=== PATIENT | male | born 1955 | race Caucasian/White ===

== ENCOUNTER 2017-04-08 16:36 | Outpatient (CLI) | payer OTHER ==
[2017-04-08 15:58] LABS: ALBUMIN/GLOBULIN RATIO 1.7 (1.0-2.2); BILIRUBIN,TOTAL 0.4 mg/dL (0.2-1.0); BUN - BLOOD UREA NITROGEN 24 mg/dL (6-20); CALCIUM 9.8 mg/dL (8.5-10.3); CARBON DIOXIDE - CO2 24 mmol/L (21-32); CHLORIDE 102 mmol/L (101-111); CHOL/HDL RATIO 9.9 (<5.0); CHOLESTEROL 278 mg/dL; CREATININE 0.8 mg/dL (0.6-1.2); GFR - MDRD 97 (>89); GLUCOSE 81 mg/dL (70-100); HDL CHOLESTEROL 28 mg/dL; POTASSIUM 4.5 mmol/L (3.5-5.0); SODIUM 136 mmol/L (135-145); TOTAL PROTEIN 7.6 g/dL (6.7-8.2); TRIGLYCERIDES 517 mg/dL
[2017-04-08 16:23] LABS: BASOPHILS % (AUTO) 0.4 %; EOSINOPHILS # (AUTO) 0.2 10^3/uL (0.0-0.7); EOSINOPHILS % (AUTO) 2.2 %; HCT - HEMATOCRIT 46.9 % (42.0-52.0); HGB - HEMOGLOBIN 15.8 g/dL (14.0-18.0); LYMPHOCYTES # (AUTO) 2.9 10^3/uL (1.5-3.5); MEAN CORPUSCULAR HEMOGLOBIN 31.2 pg (27.0-31.0); MEAN CORPUSCULAR HGB CONC 33.7 g/dL (32.0-36.0); MEAN CORPUSCULAR VOLUME 92.6 fL (80.0-94.0); MEAN PLATELET VOLUME 10.1 fL (7.4-11.4); MONOCYTES % (AUTO) 9.8 %; NEUTROPHILS # (AUTO) 6.1 10^3/uL (1.5-6.6); NEUTROPHILS % (AUTO) 59.6 %; RED BLOOD COUNT 5.06 10^6/uL (4.70-6.10); UNCORRECTED WHITE BLOOD COUNT 10.2 x10^3/uL; WHITE BLOOD COUNT 10.2 x10^3/uL (4.8-10.8)
[2017-04-08 16:29] LABS: THYROID STIMULATING HORMONE 2.51 uIU/mL (0.34-5.60)
[2017-04-08 16:40] LABS: LDL CHOLESTEROL,DIRECT 77 mg/dL
== END 2017-04-08 16:37 | disposition home or self-care (01) ==
LOC: LAB.R 16:36
PROVIDERS: ATTEND Nurse Practitioner Primary Care
DX: G62.9 Polyneuropathy, unspecified (principal); E55.9 Vitamin D deficiency, unspecified; E78.2 Mixed hyperlipidemia; E88.81 Metabolic syndrome and other insulin resistance
CPT/HCPCS: 80053; 80061; 82306; 82607; 84443; 85025

== ENCOUNTER 2017-07-18 08:10 | Outpatient (CLI) | payer OTHER ==
[2017-07-18 15:25] LABS: ALBUMIN/GLOBULIN RATIO 1.5 (1.0-2.2); BILIRUBIN,TOTAL 0.5 mg/dL (0.2-1.0); BUN - BLOOD UREA NITROGEN 23 mg/dL (6-20); CALCIUM 9.6 mg/dL (8.5-10.3); CARBON DIOXIDE - CO2 27 mmol/L (21-32); CHLORIDE 101 mmol/L (101-111); CHOL/HDL RATIO 4.8 (<5.0); CHOLESTEROL 143 mg/dL; GFR - MDRD 75 (>89); GLUCOSE 87 mg/dL (70-100); HDL CHOLESTEROL 30 mg/dL; LDL/HDL RATIO 2.6 (<3.6); SODIUM 137 mmol/L (135-145); TOTAL PROTEIN 7.4 g/dL (6.7-8.2); TRIGLYCERIDES 168 mg/dL; VLDL CHOLESTEROL 34 mg/dL
== END 2017-07-18 08:11 ==
LOC: LAB.R 08:10
PROVIDERS: ATTEND Nurse Practitioner Primary Care
DX: R63.4 Abnormal weight loss (principal); E88.81 Metabolic syndrome and other insulin resistance; E78.5 Hyperlipidemia, unspecified
CPT/HCPCS: 80053; 80061

== ENCOUNTER 2017-12-22 08:00 | Outpatient (CLI) | payer OTHER ==
[2017-12-22 13:06] LABS: BASOPHILS % (AUTO) 0.9 %; EOSINOPHILS # (AUTO) 0.1 10^3/uL (0.0-0.7); EOSINOPHILS % (AUTO) 2.6 %; HGB - HEMOGLOBIN 14.4 g/dL (14.0-18.0); LYMPHOCYTES # (AUTO) 1.8 10^3/uL (1.5-3.5); LYMPHOCYTES % (AUTO) 36.6 %; MEAN CORPUSCULAR HEMOGLOBIN 33.2 pg (27.0-31.0); MEAN CORPUSCULAR VOLUME 97.6 fL (80.0-94.0); MEAN PLATELET VOLUME 9.7 fL (7.4-11.4); MONOCYTES # (AUTO) 0.4 10^3/uL (0.0-1.0); NEUTROPHILS # (AUTO) 2.5 10^3/uL (1.5-6.6); NEUTROPHILS % (AUTO) 51.9 %; PLT - PLATELET COUNT 203 10^3/uL (130-450); RED BLOOD COUNT 4.33 10^6/uL (4.70-6.10); RED CELL DISTRIBUTION WIDTH 14.2 % (12.0-15.0); WHITE BLOOD COUNT 4.8 x10^3/uL (4.8-10.8)
[2017-12-22 13:51] LABS: ALBUMIN 4.4 g/dL (3.2-5.5); ALBUMIN/GLOBULIN RATIO 1.7 (1.0-2.2); ALKALINE PHOSPHATASE 45 IU/L (42-121); ALT ALANINE AMINOTRANSFERASE 28 IU/L (10-60); AST ASPARTATE AMINOTRANSFERASE 22 IU/L (10-42); BILIRUBIN,TOTAL 0.4 mg/dL (0.2-1.0); BUN - BLOOD UREA NITROGEN 28 mg/dL (6-20); CALCIUM 9.3 mg/dL (8.5-10.3); CARBON DIOXIDE - CO2 26 mmol/L (21-32); CHLORIDE 101 mmol/L (101-111); CHOL/HDL RATIO 3.4 (<5.0); CHOLESTEROL 165 mg/dL; CREATININE 0.8 mg/dL (0.6-1.2); GFR - MDRD 97 (>89); GLUCOSE 84 mg/dL (70-100); HDL CHOLESTEROL 49 mg/dL; LDL CHOLESTEROL,CALCULATED 96 mg/dL; SODIUM 135 mmol/L (135-145); VLDL CHOLESTEROL 20 mg/dL
== END 2017-12-22 08:01 ==
LOC: LAB.R 08:00
PROVIDERS: ATTEND Nurse Practitioner Primary Care
DX: Z79.899 Other long term (current) drug therapy (principal); E88.81 Metabolic syndrome and other insulin resistance; E78.5 Hyperlipidemia, unspecified
CPT/HCPCS: 80053; 80061; 83721; 85025

== ENCOUNTER 2018-05-17 16:09 | Outpatient (CLI) | payer OTHER ==
--- NOTE | 2018-05-18 08:39 | XRAY Report ---
Procedure Date: 05/17/2018 Accession Number: [id number] / [id number] Procedure: XR - Lumbar Spine Complete CPT Code: FULL RESULT: EXAM: Lumbar Spine Complete DATE: 05/17/2018 4:36 PM CLINICAL HISTORY: LEG NUMBNESS,RIGHT COMPARISON: None. TECHNIQUE: 5 views. FINDINGS: Alignment: Mild degenerative dextroscoliosis. Bones: Five [id number]-holgaqd lumbar vertebral bodies are present. No fractures or bone lesions. Disks: Moderate degenerative disc disease. Facets: Moderate facet arthropathy. Sacroiliac Joints: Unremarkable. Soft Tissues: Normal. The visualized bowel gas pattern is normal. IMPRESSION: Moderate degenerative changes, with mild degenerative dextroscoliosis. RADIA
== END 2018-05-17 16:10 | disposition home or self-care (01) ==
LOC: DI 16:09
PROVIDERS: ATTEND Nurse Practitioner Primary Care
DX: M51.36 Other intervertebral disc degeneration, lumbar region (principal); M47.896 Other spondylosis, lumbar region; M41.86 Other forms of scoliosis, lumbar region
CPT/HCPCS: 72110

== ENCOUNTER 2018-10-27 08:22 | Outpatient (CLI) | payer OTHER ==
--- NOTE | 2018-10-27 09:53 | XRAY Report ---
Reason: GREATER TRONCHANTRIC BURSITIS Procedure Date: 10/27/2018 Accession Number: [id number] / [id number] Procedure: XR - Pelvis 1 View CPT Code: FULL RESULT: EXAM: PELVIS RADIOGRAPHY EXAM DATE: 10/27/2018 08:36 AM. CLINICAL HISTORY: Greater trochanteric bursitis. COMPARISON: None. TECHNIQUE: 1 view. FINDINGS: Bones: Normal. No fracture or bone lesion. Joints: The visualized hip joints are mildly to moderately narrowed bilaterally. The pubis symphysis, and sacroiliac joints are preserved. No subluxation. Soft Tissues: Normal. No soft tissue swelling. IMPRESSION: Mild degenerative joint disease of the hips. RADIA
== END 2018-10-27 08:23 | disposition home or self-care (01) ==
LOC: DI 08:22
PROVIDERS: ATTEND Nurse Practitioner Primary Care
DX: M16.0 Bilateral primary osteoarthritis of hip (principal)
CPT/HCPCS: 72170

== ENCOUNTER 2019-08-16 08:05 | Day surgery (SDC) | payer OTHER ==
[~2019-08-16 08:05] MED LIST: BRIMONIDINE 0.2% OPHTH DROPS 5 ML ONE; BSS/LIDOCAINE/EPINEPHRINE 1 ML SYRINGE ONE; CYCLOPENTOLATE 1% OPHTH DROPS 2 ML ONE; KETOROLAC 0.45% OPHTH DROPS ONE; PHENYLEPHRINE 2.5% OPHTH 2 ML DROPS ONE; PROPARACAINE 0.5% OPHTH DROPS 15 ML ONE; TIMOLOL 0.5% OPHTH DROPS ONE; TRIAMCIN/MOXIFLOX OPHTHALMIC 0.6 ML VIAL IO ONE; VANCOMYCIN OPHTHALMI 8MG/0.8ML 8 MG/0.8 ML SYRINGE IO ONE
[2019-08-16] MEDS ORDERED: MIDAZOLAM 2 MG/2 ML VIAL IVP ONE (08:06)
[2019-08-16] MEDS ORDERED: CYCLOPENTOLATE 1% OPHTH DROPS 2 ML RIGHTEYE ONE (08:29)
[2019-08-16] MEDS ORDERED: PHENYLEPHRINE 2.5% OPHTH 2 ML DROPS RIGHTEYE ONE (08:29)
[2019-08-16] MEDS ORDERED: KETOROLAC 0.45% OPHTH DROPS RIGHTEYE ONE (08:29)
[2019-08-16] MEDS ORDERED: PROPARACAINE 0.5% OPHTH DROPS 15 ML RIGHTEYE ONE (08:29)
--- NOTE | 2019-08-16 08:31 | ANESTHESIA ---
Pre-Anesthesia VS, & Labs - Diagnosis Right senile combined cataract - Procedure Right phaco with IOL implant Height 5 ft 10 in Body Mass Index 35.9 - NPO >8 hours - Lab Results Lab results reviewed: No Home Medications and Allergies FLUoxetine [PROzac] 10 mg PO DAILY 12/07/14 [place]-3 Fatty Acids [Fish Oil] 300 mg PO DAILY 12/09/14 Allergies/Adverse Reactions: Allergies Allergy/AdvReac Type Severity Reaction Status Date / Time hydrocodone Allergy Nausea Verified 12/07/14 15:43 oxycodone Allergy Nausea Verified 12/07/14 15:43 codeine AdvReac Nausea Verified 08/15/19 13:29 Anes History & Medical History - Anesthetic History Anesthesia Complications: reports: No previous complications Family history of Anesthesia Complications: Denies Family history of Malignant Hyperthermia: Denies - Medical History Cardiovascular: reports: None Pulmonary: reports: None Gastrointestinal: reports: None Urinary: reports: None Neuro: reports: None Musculoskeletal: reports: Osteoarthritis Endocrine/Autoimmune: reports: None Blood Disorders: reports: None Skin: reports: None Smoking Status: Former smoker (Quit 40 years ago) Psychosocial: reports: No issues indicated, Depression - Surgical History Eyes Ears Nose Throat (EENT): Other Orthopedic: Knee replacement, Arthroscopic surgery, Other Exam General: Alert Dental: WNL Mouth Opening: Greater than 4 Fingerbreadths Neck Mobility: Normal Mallampati classification: III Thyromental Distance: 4-6 cm Respiratory: Lungs clear Cardiovascular: Regular rate Mental/Cognitive Status: Alert/Oriented X3 Cognitive Status: Within normal limits Plan Anesthesia Type: MAC Consent for Procedure(s) Verified and Reviewed: Yes Code Status: Attempt Resuscitation ASA classification: 2-Mild systemic disease Is this case an emergency?: No
[2019-08-16] MEDS ORDERED: LACTATED RINGERS 1,000 ML IV ONE (08:33)
[2019-08-16] MEDS ORDERED: EPINEPHrine 1 MG/ML AMP IVP ONE (10:03)
[2019-08-16] MEDS ORDERED: BRIMONIDINE 0.2% OPHTH DROPS 5 ML OPTH ONE (10:03)
[2019-08-16] MEDS ORDERED: CHONDR SULF/HYALURONATE SYRINGE IO ONE (10:03)
[2019-08-16] MEDS ORDERED: TIMOLOL 0.5% OPHTH DROPS OPTH ONE (10:03)
[2019-08-16] MEDS ORDERED: BSS/LIDOCAINE/EPINEPHRINE 1 ML SYRINGE IO ONE (10:03)
[2019-08-16] MEDS ORDERED: TRIAMCIN/MOXIFLOX OPHTHALMIC 0.6 ML VIAL IO ONE (10:04)
[2019-08-16] MEDS ORDERED: VANCOMYCIN OPHTHALMI 8MG/0.8ML 8 MG/0.8 ML SYRINGE IO ONE (10:04)
[2019-08-16 10:56] VITALS: BP 115/75
--- NOTE | 2019-08-16 10:59 | OPERATIVE REPORT ---
DATE OF SERVICE: 08/16/2019 Physician: Gee Noel MD PREOPERATIVE DIAGNOSIS: Visually significant cataract, right eye. This was his first cataract surge ry. POSTOPERATIVE DIAGNOSIS: Visually significant cataract, right eye. This was his first cataract surg lindsey. DESCRIPTION OF PROCEDURE: Phacoemulsification with posterior chamber intraocular lens implant, right eye. SURGEON: Gee Noel MD ANESTHESIA: Monitored anesthesia care. COMPLICATIONS: None. OPERATIVE INDICATIONS: This is a 64-year-old man with progressive vision loss in the right eye due t o 3+ nuclear sclerotic cataract. Best corrected visual acuity was 20/40, with glare to 20/70 in the right eye. Indications for surgery were overall decrease in vision, difficulty seeing words on close d caption or game scores on TV, difficulty driving in low light or at night, difficulty with glare or bright lights in any situation, and decreased acuity with firearms. He was consented at length conc erning risks and benefits of cataract surgery, after which he expressed a desire to proceed with surg lindsey. OPERATIVE PROCEDURE: The patient was taken to OR #3 and placed under monitored anesthesia care. A s urgical timeout was conducted confirming correct patient, correct procedure, and correct surgical sit e. He was given topical anesthesia, and prepped and draped in the usual sterile fashion. The eye wa s entered at the 12 and 9 o'clock positions. Intracameral Shugarcaine was injected into the anterior chamber, followed by Viscoat. A continuous-tear curvilinear capsulorrhexis was performed. The nucl eus was hydrodissected and phacoemulsified. The cortex was evacuated using automated infusion and as piration. Provisc was injected capsular bag, and a 17.0 diopter intraocular lens inserted in the bag . Approximately 0.8 mL of a mixture of triamcinolone, moxifloxacin and vancomycin was injected subco njunctivally in the superior quadrant for infection and inflammation prophylaxis. I and A, was used to evacuate the viscoelastic materials. The eye was inflated to physiologic pressure using balanced salt solution and found to be watertight. The patient was taken from the operating room in good cond ition and given postoperative instructions. TD: 08/16/2019 10:16
== END 2019-08-16 08:06 | disposition home or self-care (01) ==
LOC: SDS 08:05
PROVIDERS: ATTEND Ophthalmology
PROC: 08RJ3JZ Replacement of Right Lens with Synthetic Substitute, Percutaneous Approach (ICD-10-PCS; principal; 2019-08-16 09:30)
DX: H25.11 Age-related nuclear cataract, right eye (principal); Z87.891 Personal history of nicotine dependence
CPT/HCPCS: 66984; A9270; J3490; J7120; V2632

== ENCOUNTER 2020-01-25 08:01 | Outpatient (CLI) | payer BC ==
--- NOTE | 2020-01-25 08:31 | XRAY Report ---
Reason: RIGHT HIP JOINT PAIN, DJD KNEES BILATERAL Procedure Date: 01/25/2020 Accession Number: [id number] / [id number] Procedure: XR - Knee 3 View RT CPT Code: Final Report FULL RESULT: EXAM: RIGHT KNEE RADIOGRAPHY EXAM DATE: 01/25/2020 08:23 AM. CLINICAL HISTORY: Chronic knee PAIN, DJD KNEES BILATERAL. COMPARISON: RT KNEE 02/24/2010 4:12 PM. TECHNIQUE: 3 views. FINDINGS: Bones: Normal. No fractures or bone lesions. Joints: Minimal 3 compartment osteophyte formation without joint space narrowing on nonweightbearing views. Small joint effusion. Soft Tissues: Unremarkable. IMPRESSION: 1. Mild 3 compartment right knee osteoarthritis. 2. Small right knee joint effusion. RADIA
--- NOTE | 2020-01-25 08:36 | XRAY Report ---
Reason: RIGHT HIP JOINT PAIN, DJD KNEES BILATERAL Procedure Date: 01/25/2020 Accession Number: [id number] / [id number] Procedure: XR - Hip w/Pelvis 2-3V RT CPT Code: Final Report FULL RESULT: EXAM: RIGHT HIP RADIOGRAPHY EXAM DATE: 01/25/2020 08:21 AM. CLINICAL HISTORY: Chronic RIGHT HIP JOINT PAIN. COMPARISON: PELVIS 1 VIEW 10/27/2018 8:28 AM. TECHNIQUE: 2 views. FINDINGS: Bones: Normal. No fractures or bone lesion. Joints: Moderate multilevel lower lumbar degenerative disk disease. No dislocation. The hip joint space is mildly narrowed bilaterally, as before. Soft Tissues: Normal. No soft tissue swelling. IMPRESSION: 1. Mild bilateral hip chondromalacia, as before. 2. Moderate multilevel lower lumbar degenerative disk disease. RADIA
[2020-01-25 08:43] LABS: BASOPHILS % (AUTO) 0.6 %; EOSINOPHILS # (AUTO) 0.2 10^3/uL (0.0-0.7); EOSINOPHILS % (AUTO) 3.5 %; HGB - HEMOGLOBIN 14.4 g/dL (14.0-18.0); LYMPHOCYTES # (AUTO) 2.3 10^3/uL (1.5-3.5); LYMPHOCYTES % (AUTO) 36.5 %; MEAN CORPUSCULAR HEMOGLOBIN 32.1 pg (27.0-31.0); MEAN CORPUSCULAR HGB CONC 34.6 g/dL (32.0-36.0); MEAN CORPUSCULAR VOLUME 92.7 fL (80.0-94.0); MEAN PLATELET VOLUME 10.2 fL (7.4-11.4); MONOCYTES # (AUTO) 0.7 10^3/uL (0.0-1.0); MONOCYTES % (AUTO) 11.2 %; NEUTROPHILS % (AUTO) 47.9 %; PLT - PLATELET COUNT 210 10^3/uL (130-450); RED BLOOD COUNT 4.49 10^6/uL (4.70-6.10); RED CELL DISTRIBUTION WIDTH 13.3 % (12.0-15.0); WHITE BLOOD COUNT 6.2 x10^3/uL (4.8-10.8)
[2020-01-25 08:56] LABS: ALBUMIN 4.3 g/dL (3.2-5.5); ALBUMIN/GLOBULIN RATIO 1.5 (1.0-2.2); BILIRUBIN,TOTAL 0.2 mg/dL (0.2-1.0); CALCIUM 9.2 mg/dL (8.5-10.3); CREATININE 0.9 mg/dL (0.6-1.2); TOTAL PROTEIN 7.1 g/dL (6.7-8.2)
== END 2020-01-25 08:02 | disposition home or self-care (01) ==
LOC: DI 08:01
PROVIDERS: ATTEND Family Medicine
DX: M25.551 Pain in right hip (principal); M94.251 Chondromalacia, right hip; M17.0 Bilateral primary osteoarthritis of knee; M25.461 Effusion, right knee; M51.36 Other intervertebral disc degeneration, lumbar region; R07.89 Other chest pain; E78.5 Hyperlipidemia, unspecified; M41.9 Scoliosis, unspecified; E88.81 Metabolic syndrome and other insulin resistance; F41.8 Other specified anxiety disorders
CPT/HCPCS: 36415; 80053; 83690; 84443; 85025

== ENCOUNTER 2021-03-20 09:22 | Outpatient (CLI) | payer BC ==
[2021-03-20 09:42] LABS: BASOPHILS # (AUTO) 0.1 10^3/uL (0.0-0.1); BASOPHILS % (AUTO) 0.8 %; EOSINOPHILS # (AUTO) 0.2 10^3/uL (0.0-0.7); EOSINOPHILS % (AUTO) 3.2 %; HCT - HEMATOCRIT 43.9 % (42.0-52.0); HGB - HEMOGLOBIN 14.6 g/dL (14.0-18.0); LYMPHOCYTES # (AUTO) 2.3 10^3/uL (1.5-3.5); LYMPHOCYTES % (AUTO) 37.7 %; MEAN CORPUSCULAR HEMOGLOBIN 31.1 pg (27.0-31.0); MEAN CORPUSCULAR HGB CONC 33.3 g/dL (32.0-36.0); MEAN CORPUSCULAR VOLUME 93.6 fL (80.0-94.0); MEAN PLATELET VOLUME 10.3 fL (7.4-11.4); MONOCYTES # (AUTO) 0.6 10^3/uL (0.0-1.0); MONOCYTES % (AUTO) 9.5 %; NEUTROPHILS # (AUTO) 2.9 10^3/uL (1.5-6.6); NEUTROPHILS % (AUTO) 48.5 %; PLT - PLATELET COUNT 226 10^3/uL (130-450); RED BLOOD COUNT 4.69 10^6/uL (4.70-6.10); RED CELL DISTRIBUTION WIDTH 13.4 % (12.0-15.0)
[2021-03-20 09:50] LABS: CALCIUM 10.1 mg/dL (8.5-10.3); POTASSIUM 4.4 mmol/L (3.5-5.0)
[2021-03-20 09:54] LABS: BILIRUBIN,URINE NEGATIVE (NEGATIVE); GLUCOSE, URINE (UA) NEGATIVE (NEGATIVE); KETONES,URINE (UA) NEGATIVE (NEGATIVE); LEUKOCYTE ESTERASE, URINE TRACE (NEGATIVE); NITRITE,URINE NEGATIVE (NEGATIVE); OCCULT BLOOD,URINE NEGATIVE (NEGATIVE); PROTEIN,URINE NEGATIVE (NEGATIVE); UROBILINOGEN,URINE 0.2 (NORMAL) E.U./dL (NORMAL)
[2021-03-20 10:01] LABS: CLARITY,URINE CLEAR (CLEAR)
[2021-03-20 13:01] LABS: ESTIMATED AVERAGE GLUCOSE 108 mg/dL (70-100); HEMOGLOBIN A1c% 5.4 % (4.27-6.07)
[2021-03-23 08:05] LABS: BACTERIA,URINE Rare /HPF (None Seen); RBC,URINE None Seen /HPF (0-5); SQUAMOUS EPITHELIAL CELL,UR RARE Squamous (<= Few); WBC,URINE 0-3 /HPF (0-3)
== END 2021-03-20 09:23 | disposition home or self-care (01) ==
LOC: LAB 09:22
PROVIDERS: ATTEND Orthopaedic Surgery
DX: Z01.812 Encounter for preprocedural laboratory examination (principal); R73.9 Hyperglycemia, unspecified; N39.0 Urinary tract infection, site not specified
CPT/HCPCS: 36415; 80048; 81001; 81003; 83036; 85025; 87086

== ENCOUNTER 2021-03-20 09:26 | Outpatient (CLI) | payer BC | END 2021-03-20 09:27 | disposition home or self-care (01) | LOC: RT 09:26 | PROVIDERS: ATTEND Orthopaedic Surgery | DX: Z01.818 Encounter for other preprocedural examination (principal); R73.9 Hyperglycemia, unspecified; N39.0 Urinary tract infection, site not specified | CPT/HCPCS: 36415; 80048; 81001; 81003; 83036; 85025; 87086; 93005 ==

== ENCOUNTER 2021-12-16 07:13 | Day surgery (SDC) | payer BC, OTHER ==
[2021-12-16] MEDS ORDERED: LACTATED RINGERS 1,000 ML IV ONE (07:48)
[2021-12-16] MEDS ORDERED: PROPOFOL 500 MG/50 ML 500 MG/50 ML VIAL ONE (08:19)
--- NOTE | 2021-12-16 08:21 | ANESTHESIA ---
Pre-Anesthesia VS, & Labs - Diagnosis + cologuard - Procedure colonoscopy Vital Signs: Temp Pulse Resp BP Pulse Ox 36.6 C 79 14 140/83 H 98 12/16/21 07:30 12/16/21 07:30 12/16/21 07:30 12/16/21 07:30 12/16/21 07:30 Height: 5 ft 10 in Weight (kg): 109.6 kg Body Mass Index: 34.7 BMI Classification: Obese - NPO >8 hours Home Medications and Allergies Home Medications: Ambulatory Orders Ascorbic Acid [Vitamin C] 500 mg PO DAILY 12/16/21 Aspirin [Aspirin EC] 81 mg PO DAILY 12/16/21 Multivitamin 1 each PO DAILY 12/16/21 FLUoxetine [PROzac] 40 mg PO DAILY 12/07/14 [place]-3 Fatty Acids [Fish Oil] 300 mg PO DAILY 12/09/14 Ascorbic Acid [Vitamin C] 500 mg PO DAILY 12/16/21 Aspirin [Aspirin EC] 81 mg PO DAILY 12/16/21 Multivitamin 1 each PO DAILY 12/16/21 Allergies/Adverse Reactions: Allergies Allergy/AdvReac Type Severity Reaction Status Date / Time hydrocodone Allergy Nausea Verified 12/07/14 15:43 oxycodone Allergy Nausea Verified 12/07/14 15:43 codeine AdvReac Nausea Verified 08/15/19 13:29 Anes History & Medical History - Anesthetic History Anesthesia Complications: reports: No previous complications Family history of Anesthesia Complications: Denies Family history of Malignant Hyperthermia: Denies - Medical History Cardiovascular: reports: None Pulmonary: reports: None Gastrointestinal: reports: None Urinary: reports: None Neuro: reports: None Musculoskeletal: reports: Osteoarthritis, Other Endocrine/Autoimmune: reports: None Blood Disorders: reports: None Skin: reports: None Smoking Status: Former smoker (Quit 40 years ago) - Surgical History General: reports: Colonoscopy Eyes Ears Nose Throat (EENT): reports: Cataracts Orthopedic: reports: Knee replacement Exam General: Alert, Oriented x3, Cooperative Dental: WNL Mouth Openin Fingerbreadth Neck Mobility: Normal Mallampati classification: II Thyromental Distance: 4-6 cm Respiratory: Lungs clear Cardiovascular: Regular rate Plan Anesthesia Type: Total IV Consent for Procedure(s) Verified and Reviewed: Yes Code Status: Attempt Resuscitation ASA classification: 2-Mild systemic disease Is this case an emergency?: No
[2021-12-16] MEDS ORDERED: MIDAZOLAM 2 MG/2 ML VIAL ONE (08:38)
--- NOTE | 2021-12-16 08:45 | HISTORY & PHYSICAL EXAMINATION ---
Chief Complaint - Chief Complaint Chief Complaint: positive cologuard History of Present Illness - History Obtained From Records Reviewed: yes History obtained from: pt Exam Limitations: none - History of Present Illness HPI Comment/Other: Positive cologuard. No colon symptoms. Negative colonoscopy 10 years ago. History - Past Medical History Cardiovascular: reports: None Respiratory: reports: None Neuro: reports: None Endocrine/Autoimmune: reports: None GI: reports: None : reports: None HEENT: reports: None Psych: reports: Depression Musculoskeletal: reports: Osteoarthritis, Other Derm: reports: None MRSA Hx?: No - Past Surgical History General: reports: Colonoscopy Ortho: reports: Knee replacement HEENT: reports: Cataracts Meds/Allgy - Home Medications Home Medications: Ambulatory Orders Medication Instructions Recorded Confirmed FLUoxetine [PROzac] 40 mg PO DAILY 12/07/14 12/16/21 [place]-3 Fatty Acids [Fish Oil] 300 mg PO DAILY 12/09/14 12/16/21 Ascorbic Acid [Vitamin C] 500 mg PO DAILY 12/16/21 12/16/21 Aspirin [Aspirin EC] 81 mg PO DAILY 12/16/21 12/16/21 Multivitamin 1 each PO DAILY 12/16/21 12/16/21 - Allergies Allergies/Adverse Reactions: Allergies Allergy/AdvReac Type Severity Reaction Status Date / Time hydrocodone Allergy Nausea Verified 12/07/14 15:43 oxycodone Allergy Nausea Verified 12/07/14 15:43 codeine AdvReac Nausea Verified 08/15/19 13:29 Review of Systems - Other Findings Other Findings: 10 pt ros as above otherwise unremarkable Exam - Vital Signs Reviewed Vital Signs: Yes Vital Signs: Vital Signs x48h Temp Pulse Resp BP Pulse Ox 12/16/21 07:30 36.6 C 79 14 140/83 H 98 - Physical Exam General Appearance: positive: No acute distress, Alert Eyes Bilateral: positive: PERRL, EOMI ENT: positive: No signs of dehydration Neck: positive: No JVD Respiratory: positive: No respiratory distress, Breath sounds nml Cardiovascular: positive: Regular rate & rhythm Abdomen: positive: Non-tender, No distention Neurologic/Psychiatric: positive: Oriented x3 Conclusion/Plan - Problem List (1) Abnormal stool test Conclusion/Plan: positive cologuard plan colonoscopy parq held and consent obtained
[2021-12-16] MEDS ORDERED: LACTATED RINGERS 200 ML IV ONE (09:37)
[2021-12-16] MEDS ORDERED: PROPOFOL 200 MG/20 ML VIAL IVP ONE (09:41)
[2021-12-16 09:54] VITALS: BP 102/68
--- NOTE | 2021-12-16 13:05 | ANESTHESIA POST OP EVALUATION ---
Anesthesia Post Eval - Post Anesthesia Eval Vitals: Last Vital Signs Temp 37.3 C 12/16/21 09:52 Pulse 67 12/16/21 09:52 Resp 15 12/16/21 09:52 BP 102/68 12/16/21 09:52 Pulse Ox 99 12/16/21 09:52 CV Function Including HR & BP: Stable Pain Control: Satisfactory Nausea & Vomiting: Negative Mental Status: Baseline Respiratory Status: Airway Patent Hydration Status: Satisfactory Anesthesia Complications: None
== END 2021-12-16 07:14 | disposition home or self-care (01) ==
LOC: SDS 07:13
PROVIDERS: ATTEND Surgery
PROC: 0DBK8ZX Excision of Ascending Colon, Via Natural or Artificial Opening Endoscopic, Diagnostic (ICD-10-PCS; 2021-12-16)
PROC: 0DBM8ZX Excision of Descending Colon, Via Natural or Artificial Opening Endoscopic, Diagnostic (ICD-10-PCS; 2021-12-16)
PROC: 0DBH8ZX Excision of Cecum, Via Natural or Artificial Opening Endoscopic, Diagnostic (ICD-10-PCS; principal; 2021-12-16 08:30)
DX: R19.5 Other fecal abnormalities (principal); D12.0 Benign neoplasm of cecum; D12.2 Benign neoplasm of ascending colon; D12.4 Benign neoplasm of descending colon; K57.30 Diverticulosis of large intestine without perforation or abscess without bleeding; E66.9 Obesity, unspecified; Z68.37 Body mass index [BMI] 37.0-37.9, adult; Z87.891 Personal history of nicotine dependence
CPT/HCPCS: 45380; 45385; J7120

== ENCOUNTER 2023-12-20 07:18 | Outpatient (CLI) | payer OTHER ==
--- NOTE | 2023-12-20 12:10 | CT Report ---
PROCEDURE: Upper Extremity RT WO INDICATIONS: RIGHT SHOULDER PAIN TECHNIQUE: Noncontrast 2 mm axial sections were acquired through the elbow joint, with coronal and sagittal refo rmats. For radiation dose reduction, the following was used: automated exposure control, adjustment of mA and/or kV according to patient size. COMPARISON: None. FINDINGS: Image quality: Excellent. Bones: Moderate acromioclavicular joint osteoarthritic changes are seen with joint space narrowing, subchondral sclerosis and downward osteophyte formation depressing on musculotendinous junction of law[place] praspinatus. Moderate glenohumeral joint osteoarthritic changes also seen with joint space narrowing, subchondral sclerosis and marginal osteophyte formation. No acute fracture or dislocation. No suspic ious bony lesions. The visualized right upper ribs are intact. Soft tissues: Superior migration of humeral head in relation to glenoid is noted which can be seen a ssociated with rotator cuff tendon rupture. Sagittal views shows mild to moderate supraspinatus muscl e atrophy. No abnormal soft tissue calcifications. Small to moderate joint effusion and subacromial s ubdeltoid bursal fluid is seen, no gross calcified intra-articular loose bodies. There is no axillary lymphadenopathy by size criteria. The visualized right lung field is clear. IMPRESSION: 1. Moderate acromioclavicular joint and glenohumeral joint osteoarthritis. No acute fracture or dislo cation. No suspicious bony lesions. 2. Superior migration of humeral head in relation to glenoid with loss of subacromial space concernin g for distal rotator cuff tendon rupture. Mild to moderate supraspinatus muscle atrophy is seen. No a bnormal soft tissue lesions. 3. Small to moderate joint effusion and subacromial subdeltoid bursal fluid, no calcified bodies. No axillary lymphadenopathy. Reviewed by: Ramu Lyle MD on 12/20/2023 12:08 PM PST Approved by: Ramu Lyle MD on 12/20/2023 12:08 PM PST Station ID: [id number]
== END 2023-12-20 07:19 | disposition home or self-care (01) ==
LOC: DI 07:18
PROVIDERS: ATTEND Orthopaedic Surgery
DX: M19.011 Primary osteoarthritis, right shoulder (principal); M62.511 Muscle wasting and atrophy, not elsewhere classified, right shoulder; M25.411 Effusion, right shoulder; M75.51 Bursitis of right shoulder